=== PATIENT | male | born 1960 | race Caucasian/White ===

== ENCOUNTER 2023-03-07 22:37 | Inpatient (IN) | payer OTHER, SELFPAY ==
[~2023-03-07 22:37] MED LIST: Iopamidol 300 61% 100 ML VIAL FS ONE
[2023-03-08 00:14] LABS: #Monocytes 0.7 10x3/uL (0.0-1.1); %Basophils 0.4 % (0.0-2.0); %Eosinophils 0.4 % (0.0-6.0); %Lymphocytes 16.9 % (18.0-47.0); %Monocytes 8.5 % (0.0-10.0); %Neutrophils 73.6 % (40.0-75.0); Hemoglobin 13.6 g/dL (13.5-17.5); Mean Corpuscular HGB CONC 33.9 g/dL (32.0-36.0); Mean Corpuscular Hemoglobin 29.7 pg (27.0-33.0); Mean Corpuscular Volume 87.6 fl (81.2-95.1); Mean Platelet Volume 11.6 fl (7.4-10.4); Platelet Count 234 10x3/uL (150-450); RBC Distribution Width 13.4 % (11.5-14.5); Red Blood Cell (RBC) Count 4.58 10x6/uL (4.32-5.72); White Blood Cell (WBC) Count 8.1 10x3/uL (3.5-10.5)
[2023-03-08] MEDS ORDERED: Morphine 4 MG/ML VIAL ONE (00:24)
[2023-03-08] MEDS ORDERED: Ondansetron PF 4 MG/2 ML Vial ONE ×2 (00:25→02:53)
[2023-03-08 00:31] LABS: ALT (SGPT) 23 U/L (8-55); AST (SGOT) 27 U/L (5-34); Albumin 4.9 g/dL (3.4-4.8); Alkaline Phosphatase 77 U/L (40-110); Anion Gap 18 mmol/L (10-20); BUN (Urea Nitrogen) 15 mg/dL (8.4-25.7); Bilirubin, Total 1.9 mg/dL (0.2-1.2); Calc. Creatinine Clearance 0 mL/min (70-130); Calcium 10.2 mg/dL (7.8-10.44); Carbon Dioxide 21 mmol/L (23-31); Chloride 102 mmol/L (98-107); Estimated GFR 67; Globulin 4.3 g/dL (2.4-3.5); Glucose 131 mg/dL (80-115); Lipase 7 U/L (8-78); Potassium 3.7 mmol/L (3.5-5.1); Protein, Total 9.2 g/dL (5.8-8.1); Sodium 137 mmol/L (136-145)
[2023-03-08] MEDS ORDERED: Piperacillin/Tazobactam 4.5 GM VIAL ONE (02:19)
[2023-03-08] MEDS ORDERED: PROPOFOL 20 ML ONE (02:48)
[2023-03-08] MEDS ORDERED: Midazolam HCl 2 mg/2 ml Vial ONE (02:48)
[2023-03-08] MEDS ORDERED: Fentanyl 250 MCG/5 ML VIAL ONE (02:48)
[2023-03-08] MEDS ORDERED: Dexamethasone 20 MG/5 ML VIAL ONE (02:53)
[2023-03-08] MEDS ORDERED: Rocuronium Bromide 10 MG/ML (10ML VIAL) ONE (02:53)
[2023-03-08] MEDS ORDERED: Succinylcholine 200 MG/10 ml SYRINGE FS ONE (02:53)
[2023-03-08] MEDS ORDERED: Lidocaine 1% PF 5 ML VIAL ONE (02:53)
[2023-03-08] MEDS ORDERED: Bupivacaine PF 0.5% 30 ML VIAL ONE (03:32)
[2023-03-08] MEDS ORDERED: EPINEPHrine 1 MG/ML AMP ONE (03:33)
[2023-03-08] MEDS ORDERED: PHENYLEPHRINE-NS 100 MCG/ML 10 ML SYRINGE ONE (03:43)
[2023-03-08] MEDS ORDERED: Glycopyrrolate 0.2 MG/ML 5 ML SYRINGE ONE (03:55)
[2023-03-08] MEDS ORDERED: Acetaminophen 325 MG TAB PO PRN (04:12)
[2023-03-08] MEDS ORDERED: Promethazine HCl 25 MG/ML VIAL IM PRN (04:12)
[2023-03-08] MEDS ORDERED: Morphine 4 MG/ML VIAL SLOW IVP PRN (04:12)
[2023-03-08] MEDS ORDERED: Ipratropium/Albuterol 3 ML NEB NEB PRN (04:12)
[2023-03-08] MEDS ORDERED: Morphine 2 MG/ML VIAL SLOW IVP PRN (04:12)
[2023-03-08] MEDS ORDERED: Mag-Al 1200 mg/1200 mg/30 ML UDCUP PO PRN (04:12)
[2023-03-08] MEDS ORDERED: Calcium Carbonate 500 MG ChewTAB PO PRN (04:12)
[2023-03-08] MEDS ORDERED: Ondansetron PF 4 MG/2 ML Vial IVP PRN (04:12)
[2023-03-08] MEDS ORDERED: hydrALAZINE 20 MG/ML VIAL SLOW IVP PRN (04:12)
[2023-03-08] MEDS ORDERED: HYDROcodone/Acetaminophen 5/325 mg Tablet PO PRN ×2 (04:14)
[2023-03-08 05:43] VITALS: BMI 27.7
[2023-03-08] MEDS: Lactated Ringer's 1,000 ML IV SCH ×2 (05:58→12:16)
[2023-03-08] MEDS: Ketorolac Tromethamine 30 MG/ML VIAL IVP SCH ×2 (05:58→12:16)
[2023-03-08] MEDS ORDERED: Lisinopril 20 MG TAB PO SCH (09:00)
[2023-03-08] MEDS ORDERED: Famotidine 20 MG TAB PO SCH (09:00)
[2023-03-08 10:11] VITALS: BP 136/80; TEMP 97.6
== END 2023-03-08 15:00 | disposition home or self-care (01) | DRG 355 ==
LOC: CSHERS 22:37 → CSHTELE 03-08 04:55
PROVIDERS: ADMIT Surgery; ATTEND Surgery
PROC: 0WQF0ZZ Repair Abdominal Wall, Open Approach (ICD-10-PCS; principal; 2023-03-08)
DX: K42.0 Umbilical hernia with obstruction, without gangrene (principal); I10 Essential (primary) hypertension; F17.210 Nicotine dependence, cigarettes, uncomplicated; K57.30 Diverticulosis of large intestine without perforation or abscess without bleeding; Z98.1 Arthrodesis status
CPT/HCPCS: 74177; 80053; 83605; 83690; 85025; 88302; 93005; 96365; 96374; 96375; J0171; J1100; J1885; J2250; J2270; J2405; J2543; J2704; J3010; J7120; Q9967; S0020